=== PATIENT | male | born 1970 | race African-American/Black ===

== ENCOUNTER 2016-02-15 17:22 | Observation (INO) | payer OTHER ==
[~2016-02-15] VITALS: Ht 195.6 cm; Wt 78.9 kg
[~2016-02-15 17:22] MED LIST: AMO500 PO; HYDR-3498 PO
[2016-02-15] MEDS ORDERED: HALOPERIDOL 5 MG INJ IM ONE (18:00)
[2016-02-15] MEDS ORDERED: LORAZEPAM 2 MG INJ IM ONE (18:00)
[2016-02-15] MEDS ORDERED: DIPHENHYDRAMINE 50 MG INJ IM ONE (18:30)
[2016-02-15] MEDS ORDERED: MAGNESIUM SULFATE 2 GM, MULTIVITAMINS 10 ML, THIAMINE 100 MG, FOLIC ACID 1 MG in SOD CH... IV STA (18:34)
--- NOTE | 2016-02-15 19:13 | RADRPT ---
PROCEDURE: CT Head without. CLINICAL INDICATION: 45-year-old male with medical clearance. TECHNIQUE: The study was performed utilizing a multi-slice, multidetector CT scanner. Direct spira l 1 mm axial sections were obtained through the head without the use of intravenous contrast materia l. Coronal and sagittal reformations were obtained. The images were reviewed on a PACS workstation. RADIATION DOSE: CTDIvol: 45.1 mGyDLP: 720.2 mGy-cm COMPARISON: 11/16/2014 FINDINGS: There as been interval development of wedge-shaped low densities involving the left inferior frontal lobe (axial series image 16), as well as involving the inferior left temporal lobe (axial series im age 11). The margins are poorly circumscribed, with age indeterminate infarcts in these regions. T here are is no intracranial hemorrhage, extra-axial fluid collection, mass lesion, midline shift or hydrocephalus. The ventricles, sulci and cisterns are within normal limits. The white matter is un remarkable. The serrano-white matter differentiation is preserved. The basal cisterns are patent. Th e midline structures are intact. The orbits, calvarium and extracranial soft tissues are normal in appearance. The visualized paranasal sinuses, mastoid air cells and middle ear cavities are normally aerated. IMPRESSION: 1. Interval development of wedge-shaped hypodensities involving the left inferior frontal lobe and the left inferior temporal lobe, concerning for infarcts, age indeterminate. MRI is recommended for further evaluation. 2. No intracranial hemorrhage, extra-axial fluid collection, mass lesion or hydrocephalous. The above findings were discussed with Patient's physician JENNYFER BOWSER by telephone on 02/15/2016 7:1 2:33 PM. RPTAT: DD .Carl Ocasio MD, Date Time Electronically viewed and signed by .Carl Ocasio MD, MD on 02/15/2016 19:12 .S/
[2016-02-15 20:03] LABS: BASOPHILS % 0.2 % (0.0-2.0); EOSINOPHILS % 0.3 % (0.0-7.0); HEMATOCRIT 43.6 % (42.0-52.0); HEMOGLOBIN 14.6 g/dl (14.0-18.0); LYMPHOCYTES # 1.2 10^3/ul (0.8-2.9); LYMPHOCYTES % 13.6 % (15.0-51.0); MEAN CORPUSCULAR HGB CONC 33.5 g/dl (32.0-37.0); MEAN CORPUSCULAR VOLUME 89.4 fl (82.0-101.0); MEAN PLATELET VOLUME 7.6 fl (7.4-10.4); MONOCYTE # 0.3 10^3/ul (0.3-0.9); MONOCYTES % 3.8 % (0.0-11.0); NEUTROPHILS % 82.1 % (39.0-77.0); PLATELET COUNT 242 10^3/UL (140-440); RED BLOOD COUNT 4.88 10^6/ul (4.70-6.10); RED CELL DISTRIBUTION WIDTH 14.3 % (11.5-14.5); UNCORRECTED WBC 8.5 10^3/ul (4.8-10.8); WHITE BLOOD COUNT 8.5 10^3/ul (4.8-10.8)
[2016-02-15 20:05] LABS: CONDITION 1
[2016-02-15 20:15] LABS: ALBUMIN 4.8 g/dl (3.3-4.9); CHLORIDE 102 mmol/L (97-110)
[2016-02-15 20:16] LABS: POTASSIUM 3.9 mmol/L (3.5-5.1); SODIUM 144 mmol/L (135-144)
[2016-02-15 20:17] LABS: CREATININE 0.78 mg/dl (0.61-1.24)
[2016-02-15 20:18] LABS: ALANINE AMINOTRANSFERASE 30 IU/L (13-69); ALKALINE PHOSPHATASE 74 IU/L (42-121); ANION GAP 22 (8-16); ASPARTATE AMINO TRANSFERASE 48 IU/L (15-46); BILIRUBIN,INDIRECT 0.3 mg/dl (0-1.1); BILIRUBIN,TOTAL 0.3 mg/dl (0.2-1.3); BLOOD UREA NITROGEN 14 mg/dl (7-20); CALCIUM 9.3 mg/dl (8.4-10.2); CARBON DIOXIDE 24 mmol/L (21-31); GLUCOSE 75 mg/dl (70-220); TOTAL PROTEIN 8.8 g/dl (6.1-8.1)
[2016-02-15 20:19] LABS: ACETAMINOPHEN < 10.0 ug/ml (10.0-30.0); SALICYLATE < 1.0 mg/dl (5.0-30.0)
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
[2016-02-15] MEDS ORDERED: ACETAMINOPHEN 325 MG TAB PO PRN (22:30)
[2016-02-15] MEDS ORDERED: ONDANSETRON 4 MG INJ IV PRN ×2 (22:30→23:30)
--- NOTE | 2016-02-15 23:04 | HP ---
Date/Time of Note Date/Time of Note DATE: 02/15/16 TIME: 22:59 Assessment/Plan VTE Prophylaxis VTE Prophylaxis Intervention: SCD's Assessment/Plan Assessment/Plan 1. alcohol intoxication 2. Frontal and temporal lobe age indeterminate hypodensities concerning for CVA 3. Altered mental status 2/2 #1 4. HTN PLAN: admit / Banana bag / librium / MRI brain Fall precautions / PRN benzodiazepine for agitation / swallow eval pain control/ antiemetics/ antipyretics/ supportive care Prophylaxis: SCDS /PPI Further evaluation and treatment will be based on clinical course Full discussion with care team done. All questions Answered Please also see orders. Total time spent on this evaluation >35mins HPI/ROS Admit Date/Time Admit Date/Time 02/15/16 Hx of Present Illness PRESENTING COMPLAINT: altered mentation HISTORY OF PRESENTING COMPLAINT: 45 yo M found wandering and belligerent by EMS abd brought into the ER and found to be intoxicated and combative. he was sedated and as such I can get no history from him. Preliminary ER workup is concerning for hypodensities on CT Brain and he is being admitted for further resuscitation and MRI brain. No further history is obtainable from patient. ROS Unobtainable d/t patient's clinical status PMH/Family/Social Past Medical History * No pertinent hx Past Surgical History * R knee surgery Family History Significant Family History: other (unknown) Social History Alcohol Use: heavy Smoking Status: Current every day smoker Drug Use: none Exam/Review of Systems Vital Signs Vitals Vital Signs Date Time Temp Pulse Resp B/P Pulse Ox O2 Delivery O2 Flow Rate FiO2 02/15/16 18:33 98.4 88 20 144/88 98 Exam Constitutional: other (sleeping comfortably), No alert, No oriented Psych: other (unable to assess) Head: atraumatic, normocephalic Respiratory: clear to auscultation, diminished breath sounds Cardiovascular: regular rate and rhythm, No murmurs/extra sounds Gastrointestinal: bowel sounds, non-tender, soft Genitourinary - Male: other (deferred) Extremities: No edema Neurological: lethargic Skin: No rash or lesions Labs Result Diagram: 02/15/16 1950 02/15/16 1950 Procedures Procedures Laboratory Tests Test 02/15/16 19:50 Acetaminophen Level < 10.0ug/ml Alanine Aminotransferase (ALT/SGPT) 30IU/L Albumin 4.8g/dl Albumin/Globulin Ratio 1.20 Alkaline Phosphatase 74IU/L Anion Gap 22 Aspartate Amino Transf (AST/SGOT) 48IU/L Basophils # 0.010^3/ul Basophils % 0.2% Blood Urea Nitrogen 14mg/dl Calcium Level 9.3mg/dl Carbon Dioxide Level 24mmol/L Chloride Level 102mmol/L Creatinine 0.78mg/dl Direct Bilirubin 0.00mg/dl Eosinophils # 0.010^3/ul Eosinophils % 0.3% Ethyl Alcohol Level 224.0mg/dl Globulin 4.00g/dl Glucose Level 75mg/dl Hematocrit 43.6% Hemoglobin 14.6g/dl Indirect Bilirubin 0.3mg/dl Lymphocytes # 1.210^3/ul Lymphocytes % 13.6% Mean Corpuscular Hemoglobin 30.0pg Mean Corpuscular Hemoglobin Concent 33.5g/dl Mean Corpuscular Volume 89.4fl Mean Platelet Volume 7.6fl Monocytes # 0.310^3/ul Monocytes % 3.8% Neutrophils # 7.010^3/ul Neutrophils % 82.1% Nucleated Red Blood Cells # 0.010^3/ul Nucleated Red Blood Cells % 0.0/100WBC Platelet Count 28407^3/UL Potassium Level 3.9mmol/L Red Blood Count 4.8810^6/ul Red Cell Distribution Width 14.3% Salicylates Level < 1.0mg/dl Sodium Level 144mmol/L Total Bilirubin 0.3mg/dl Total Protein 8.8g/dl White Blood Count 8.510^3/ul ER INTERVENTIONS Medications (Trade) Dose Ordered Sig/Sharonda Route PRN Reason Start Time Stop Time Status Last Admin Dose Admin Haloperidol (Haldol) 5 mg ONCE ONCE IM 02/15/16 18:00 02/15/16 18:01 DC Lorazepam (Ativan) 2 mg ONCE ONCE IM 02/15/16 18:00 02/15/16 18:01 DC Diphenhydramine HCl 50 mg 50 mg ONCE ONCE IM 02/15/16 18:30 02/15/16 18:31 DC Magnesium Sulfate/ Multivitamins/ Thiamine HCl/ Folic Acid/Sodium Chloride (Magnesium Sulfate/Mvi Adult/ Vitamin B1/Folic Acid/NS) 1,015.2 ml @ 500 mls/ hr Q2H2M STAT IV 02/15/16 18:34 02/15/16 20:35 DC 02/15/16 22:05 500 MLS/HR Ondansetron HCl (Zofran Inj) 4 mg BRIDGE ORDER PRN IV NAUSEA AND/OR VOMITING 02/15/16 22:30 02/16/16 22:29 Acetaminophen (Tylenol Tab) 650 mg ER BRIDGE PRN PO MILD PAIN/FEVER 02/15/16 22:30 02/16/16 22:29 PROCEDURE: CT Head without. CLINICAL INDICATION: 45-year-old male with medical clearance. TECHNIQUE: The study was performed utilizing a multi-slice, multidetector CT scanner. Direct spiral 1 mm axial sections were obtained through the head without the use of intravenous contrast material. Coronal and sagittal reformations were obtained. The images were reviewed on a PACS workstation. RADIATION DOSE: CTDIvol: 45.1 mGy DLP: 720.2 mGy-cm COMPARISON: 11/16/2014 FINDINGS: There as been interval development of wedge-shaped low densities involving the left inferior frontal lobe (axial series image 16), as well as involving the inferior left temporal lobe (axial series image 12). The margins are poorly circumscribed, with age indeterminate infarcts in these regions. There are is no intracranial hemorrhage, extra-axial fluid collection, mass lesion, midline shift or hydrocephalus. The ventricles, sulci and cisterns are within normal limits. The white matter is unremarkable. The serrano-white matter differentiation is preserved. The basal cisterns are patent. The midline structures are intact. The orbits, calvarium and extracranial soft tissues are normal in appearance. The visualized paranasal sinuses, mastoid air cells and middle ear cavities are normally aerated. IMPRESSION: 1. Interval development of wedge-shaped hypodensities involving the left inferior frontal lobe and the left inferior temporal lobe, concerning for infarcts, age indeterminate. MRI is recommended for further evaluation. 2. No intracranial hemorrhage, extra-axial fluid collection, mass lesion or hydrocephalous. KAIT SEGUNDO. Feb 15, 2016 23:04
[2016-02-15] MEDS ORDERED: LORAZEPAM 2 MG INJ IV PRN (23:30)
[2016-02-15 23:55] LABS: INR 0.94; PROTIME 12.6 Sec (12.2-14.2)
[2016-02-15 23:56] LABS: PARTIAL THROMBOPLASTIN TIME 32.2 Sec (25.0-35.0)
[2016-02-16] VITALS: TEMP 98
[2016-02-16] MEDS: CHLORDIAZEPOXIDE 25 MG CAP PO SCH ×3 (02:37→15:36)
[2016-02-16] MEDS: DEXTROSE 5%-0.45% NACL 1,000 ML IV SCH ×4 (02:38→21:26)
[2016-02-16 03:15] VITALS: BP 131/79; PULSE 85; RESP 20; Ht 195.6 cm; Wt 78.9 kg
[2016-02-16] MEDS: PANTOPRAZOLE (EC) 40 MG TAB PO SCH (06:24)
[2016-02-16 08:05] LABS: BASOPHILS % 0.1 % (0.0-2.0); EOSINOPHILS # 0.1 10^3/ul (0.0-0.5); EOSINOPHILS % 0.9 % (0.0-7.0); HEMATOCRIT 42.3 % (42.0-52.0); HEMOGLOBIN 14.3 g/dl (14.0-18.0); LYMPHOCYTES # 1.3 10^3/ul (0.8-2.9); LYMPHOCYTES % 18.6 % (15.0-51.0); MEAN CORPUSCULAR HGB CONC 33.7 g/dl (32.0-37.0); MEAN PLATELET VOLUME 7.8 fl (7.4-10.4); MONOCYTE # 0.5 10^3/ul (0.3-0.9); MONOCYTES % 7.1 % (0.0-11.0); NEUTROPHIL # 5.3 10^3/ul (1.6-7.5); NEUTROPHILS % 73.3 % (39.0-77.0); PLATELET COUNT 248 10^3/UL (140-440); RED BLOOD COUNT 4.75 10^6/ul (4.70-6.10); RED CELL DISTRIBUTION WIDTH 14.1 % (11.5-14.5); UNCORRECTED WBC 7.2 10^3/ul (4.8-10.8); WHITE BLOOD COUNT 7.2 10^3/ul (4.8-10.8)
[2016-02-16 08:12] LABS: ALBUMIN 4.3 g/dl (3.3-4.9); POTASSIUM 4.4 mmol/L (3.5-5.1)
[2016-02-16 08:14] LABS: CREATININE 0.78 mg/dl (0.61-1.24)
[2016-02-16 08:15] LABS: CALCIUM 8.9 mg/dl (8.4-10.2); MAGNESIUM 2.1 mg/dl (1.7-2.5); PHOSPHORUS 2.9 mg/dl (2.5-4.9)
[2016-02-16 08:30] VITALS: BP 124/80; PULSE 94; RESP 18
[2016-02-16 08:39] LABS: CONDITION 1
[2016-02-16] MEDS: MULTIVITAMINS 10 ML, THIAMINE 100 MG, FOLIC ACID 1 MG in SOD CHLORIDE 0.9% 1,000 ML IVPB SCH (09:55)
--- NOTE | 2016-02-16 13:43 | PN ---
Date/Time of Note Date/Time of Note DATE: 02/16/16 TIME: 13:39 Assessment/Plan VTE Prophylaxis VTE Prophylaxis Intervention: ambulation Lines/Catheters IV Catheter Type (from [facility]): Peripheral IV Assessment/Plan Chief Complaint/Hosp Course A/P 1) Ac Toxic/metabolic encephalopathy; nonfocal, stable cont supportive care. 2) Alcoholism/intoxication; watch for w/d; add b1/AA/social service? 3) Stroke? doubt, check mri 4)Tobacco abuse; offer patch when appropriate. Problems: Subjective 24 Hr Interval Summary Free Text/Dictation S- awake, alert, follows commands. No significant complaints. No headache/ vision disturbances. no active tremors. Exam/Review of Systems Vital Signs Vitals Vital Signs Date Time Temp Pulse Resp B/P Pulse Ox O2 Delivery O2 Flow Rate FiO2 02/16/16 08:30 97.0 94 18 124/80 100 Room Air Intake and Output 02/15/16 02/15/16 02/16/16 15:00 23:00 07:00 Intake Total 350 ml Balance 350 ml Exam Constitutional: alert, well developed Respiratory: clear to auscultation Cardiovascular: regular rate and rhythm Gastrointestinal: non-tender (nd; no r r g), soft Extremities: other (no edema) Skin: other (non focal) Results Result Diagram: 02/16/16 0655 02/16/16 0655 Results 24 hrs Laboratory Tests Test 02/15/16 19:50 02/16/16 06:55 Acetaminophen Level < 10.0 L Activated Partial Thromboplast Time 32.2 Alanine Aminotransferase (ALT/SGPT) 30 Albumin 4.8 4.3 Albumin/Globulin Ratio 1.20 Alkaline Phosphatase 74 Anion Gap 22 H 17 H Aspartate Amino Transf (AST/SGOT) 48 H Basophils # 0.0 0.0 Basophils % 0.2 0.1 Blood Urea Nitrogen 14 12 Calcium Level 9.3 8.9 Carbon Dioxide Level 24 25 Chloride Level 102 104 Creatinine 0.78 0.78 Direct Bilirubin 0.00 Eosinophils # 0.0 0.1 Eosinophils % 0.3 0.9 Ethyl Alcohol Level 224.0 Globulin 4.00 H Glucose Level 75 73 Hematocrit 43.6 42.3 Hemoglobin 14.6 14.3 INR International Normalized Ratio 0.94 Indirect Bilirubin 0.3 Lipase 68 Lymphocytes # 1.2 1.3 Lymphocytes % 13.6 L 18.6 Mean Corpuscular Hemoglobin 30.0 30.0 Mean Corpuscular Hemoglobin Concent 33.5 33.7 Mean Corpuscular Volume 89.4 89.0 Mean Platelet Volume 7.6 7.8 Monocytes # 0.3 0.5 Monocytes % 3.8 7.1 Neutrophils # 7.0 5.3 Neutrophils % 82.1 H 73.3 Nucleated Red Blood Cells # 0.0 0.0 Nucleated Red Blood Cells % 0.0 0.0 Platelet Count 242 248 Potassium Level 3.9 4.4 Prothrombin Time 12.6 Prothrombin Time Ratio 1.0 Red Blood Count 4.88 4.75 Red Cell Distribution Width 14.3 14.1 Salicylates Level < 1.0 L Sodium Level 144 142 Total Bilirubin 0.3 Total Protein 8.8 H White Blood Count 8.5 7.2 Magnesium Level 2.1 Phosphorus Level 2.9 Medications Medications Current Medications Multivitamins 10 ml/Thiamine HCl 100 mg/Folic Acid 1 mg/Sodium Chloride 1,011.2 ml @ 125 mls/ hr DAILY@09 IVPB Last administered on 02/16/16at 09:55; Admin Dose 125 MLS/HR; Start 02/16/16 at 09:00 Dextrose/Sodium Chloride (D5-1/2ns) 1,000 ml @ 125 mls/hr Q8H IV Last administered on 02/16/16at 02:38; Admin Dose 125 MLS/HR; Start 02/15/16 at 23: 30 Lorazepam (Ativan) 2 mg Q6H PRN IV agitation; Start 02/15/16 at 23:30 Chlordiazepoxide (Librium) 50 mg Q8H PO Last administered on 02/16/16at 09:06; Admin Dose 50 MG; Start 02/15/16 at 23:30; Stop 02/16/16 at 23:29 Chlordiazepoxide (Librium) 25 mg Q6H PRN PO agitation; Start 02/16/16 at 23:30 Pantoprazole (Protonix Tab) 40 mg DAILY@06 PO Last administered on 02/16/16at 06:24; Admin Dose 40 MG; Start 02/16/16 at 06:00 Ondansetron HCl (Zofran Inj) 4 mg Q6H PRN IV NAUSEA AND/OR VOMITING; Start at 23:30 Miscellaneous Information Patients own medicat... BID@ XX ; Start at 10:00 CARYN MICHAEL MD Feb 16, 2016 13:43
--- NOTE | 2016-02-16 14:56 | CONS ---
Date/Time of Note Date/Time of Note DATE: 02/16/16 TIME: 14:47 Assessment/Plan Assessment/Plan Additional Assessment/Plan 45 yo M found wandering and belligerent by EMS, was brought into the ER and found to be intoxicated and combative. He was sedated and as such I can get no history from him. CT brain showed wedge-shaped hypodensities involving the left inferior frontal lobe and the left inferior temporal lobe, concerning for infarcts. Alcohol level was 224. PLAN 1 MRI of brain 2 Thaimine 100 mg po qd 3 watch for DT 4 will follow Consultation Date/Type/Reason Admit Date/Time 02/15/16 Date of Consultation: Feb 16, 2016 Reason for Consultation Alcohol intoxication and abnormal CT brain Hx of Present Illness 45 yo M found wandering and belligerent by EMS, was brought into the ER and found to be intoxicated and combative. He was sedated and as such I can get no history from him. CT brain showed wedge-shaped hypodensities involving the left inferior frontal lobe and the left inferior temporal lobe, concerning for infarcts. Alcohol level was 224. Constitutional: no complaints Eyes: no complaints ENT: no complaints Respiratory: no complaints Cardiovascular: no complaints Genitourinary: no complaints Musculoskeletal: no complaints Skin: no complaints Neurologic: no complaints Endocrine: no complaints Lymphatic: no complaints Psychological: nl mood/affect, no complaints, other (unable to assess) Immunologic: no complaints Past Medical History Medical History: no pertinent history Past Surgical History Past Surgical Hx: no surgical history Family History Significant Family History: no pertinent family hx Social History Alcohol Use: heavy Smoking Status: Current some day smoker Drug Use: none Exam/Review of Systems Vital Signs Vitals Vital Signs Date Time Temp Pulse Resp B/P Pulse Ox O2 Delivery O2 Flow Rate FiO2 02/16/16 08:30 97.0 94 18 124/80 100 Room Air Intake and Output 02/15/16 02/15/16 02/16/16 15:00 23:00 07:00 Intake Total 350 ml Balance 350 ml Exam Constitutional: alert, well developed Psych: nl mood/affect, no complaints Head: atraumatic, normocephalic Eyes: EOMI, nl conjunctiva, nl lids ENMT: nl external ears & nose, nl lips & teeth, nl nasal mucosa & septum Neck: non-tender, supple Respiratory: clear to auscultation, normal air movement Cardiovascular: nl pulses, regular rate and rhythm Gastrointestinal: nl liver, spleen, non-tender, soft Musculoskeletal: nl extremities to inspection, nl gait and stance Extremities: normal pulses Neurological: PIGMENT WEIGHER II-XII intact, nl speech, nl strength Skin: nl turgor Lymph: nl lymph nodes Results Result Diagram: 02/16/16 0655 02/16/16 0655 Results 24 hrs Laboratory Tests Test 02/15/16 19:50 02/16/16 06:55 Acetaminophen Level < 10.0 L Activated Partial Thromboplast Time 32.2 Alanine Aminotransferase (ALT/SGPT) 30 Albumin 4.8 4.3 Albumin/Globulin Ratio 1.20 Alkaline Phosphatase 74 Anion Gap 22 H 17 H Aspartate Amino Transf (AST/SGOT) 48 H Basophils # 0.0 0.0 Basophils % 0.2 0.1 Blood Urea Nitrogen 14 12 Calcium Level 9.3 8.9 Carbon Dioxide Level 24 25 Chloride Level 102 104 Creatinine 0.78 0.78 Direct Bilirubin 0.00 Eosinophils # 0.0 0.1 Eosinophils % 0.3 0.9 Ethyl Alcohol Level 224.0 Globulin 4.00 H Glucose Level 75 73 Hematocrit 43.6 42.3 Hemoglobin 14.6 14.3 INR International Normalized Ratio 0.94 Indirect Bilirubin 0.3 Lipase 68 Lymphocytes # 1.2 1.3 Lymphocytes % 13.6 L 18.6 Mean Corpuscular Hemoglobin 30.0 30.0 Mean Corpuscular Hemoglobin Concent 33.5 33.7 Mean Corpuscular Volume 89.4 89.0 Mean Platelet Volume 7.6 7.8 Monocytes # 0.3 0.5 Monocytes % 3.8 7.1 Neutrophils # 7.0 5.3 Neutrophils % 82.1 H 73.3 Nucleated Red Blood Cells # 0.0 0.0 Nucleated Red Blood Cells % 0.0 0.0 Platelet Count 242 248 Potassium Level 3.9 4.4 Prothrombin Time 12.6 Prothrombin Time Ratio 1.0 Red Blood Count 4.88 4.75 Red Cell Distribution Width 14.3 14.1 Salicylates Level < 1.0 L Sodium Level 144 142 Total Bilirubin 0.3 Total Protein 8.8 H White Blood Count 8.5 7.2 Magnesium Level 2.1 Phosphorus Level 2.9 Medications Medications Current Medications Multivitamins 10 ml/Thiamine HCl 100 mg/Folic Acid 1 mg/Sodium Chloride 1,011.2 ml @ 125 mls/ hr DAILY@09 IVPB Last administered on 02/16/16at 09:55; Admin Dose 125 MLS/HR; Start 02/16/16 at 09:00 Dextrose/Sodium Chloride (D5-1/2ns) 1,000 ml @ 125 mls/hr Q8H IV Last administered on 02/16/16at 02:38; Admin Dose 125 MLS/HR; Start 02/15/16 at 23: 30 Lorazepam (Ativan) 2 mg Q6H PRN IV agitation; Start 02/15/16 at 23:30 Chlordiazepoxide (Librium) 50 mg Q8H PO Last administered on 02/16/16at 09:06; Admin Dose 50 MG; Start 02/15/16 at 23:30; Stop 02/16/16 at 23:29 Chlordiazepoxide (Librium) 25 mg Q6H PRN PO agitation; Start 02/16/16 at 23:30 Pantoprazole (Protonix Tab) 40 mg DAILY@06 PO Last administered on 02/16/16at 06:24; Admin Dose 40 MG; Start 02/16/16 at 06:00 Ondansetron HCl (Zofran Inj) 4 mg Q6H PRN IV NAUSEA AND/OR VOMITING; Start at 23:30 Miscellaneous Information Patients own medicat... BID@10,16 XX ; Start at 10:00 Procedures Procedures 02/15/16 CT brain IMPRESSION: 1. Interval development of wedge-shaped hypodensities involving the left inferior frontal lobe and the left inferior temporal lobe, concerning for infarcts, age indeterminate. MRI is recommended for further evaluation. 2. No intracranial hemorrhage, extra-axial fluid collection, mass lesion or hydrocephalous. The above findings were discussed with Patient's physician JENNYFER BOWSER by telephone on 02/15/2016 7:12:33 PM. RPTAT: DD .Carl Ocasio MD, Date Time Electronically viewed and signed by .Carl Ocasio MD, on 02/15/2016 19: 12 NO GAGNON MD Feb 16, 2016 14:56
--- NOTE | 2016-02-16 16:02 | RADRPT ---
PROCEDURE: MRI Brain without contrast. CLINICAL INDICATION: Abnormal head CT was hypo density in the left frontal and temporal lobes TECHNIQUE: An MRI of the brain was performed on a high resolution hi-definition 3.0 Geri MRI scan ner utilizing the following sequences: Sagittal axial T1 weighted, axial T2 weighted, coronal GRE, axial diffusion weighted with ADC mapping, coronal GRE, and axial FLAIR. COMPARISON: Brain CT on FINDINGS: The scalp and calvarium are normal. The visualized bilateral orbits are normal. The bilateral paran ana luisa sinuses are remarkable for mild mucosal thickening in the bilateral maxillary, ethmoid and fron han sinuses. The bilateral mastoid air cells demonstrate incomplete mastoid air cell pneumatization . The bilateral middle ear cavities are clear. No extra-axial fluid collections are present. The ventricles and sulci are normal in size and config uration. No evidence of intracranial hemorrhage, mass effect or midline shift is present. FLAIR and T2 hyperintensity is noted in the left temporal lobe and the left inferior frontal lobes. These may represent sequela of prior contusion, infarcts, however acute encephalomyelitis is a consideration. Consider brain MRI with contrast to further evaluate. In addition punctate foci of hyperintensity i s present in the bilateral centrum semiovale and periventricular white matter which are nonspecific microvascular changes. No diffusion weighted abnormalities are seen to suggest the presence of acute ischemia or recent infarct. No hypointense signal abnormalities are seen on the GRE images to sugg est the presence of blood degradation products. Normal flow voids are visible in the proximal in tracranial arteries and dural sinuses, indicating patency. IMPRESSION: 1. No evidence for acute intracranial infarcts, masses, or hemorrhage. 2. Wedge-shaped hyperintensity in the left inferior frontal and temporal lobes may represent sequel a of prior infarct, contusion, or cerebritis. Consider follow-up with contrast brain MRI. 3. Mild nonspecific hyperintense white matter foci compatible with migrainous vasculopathy, vasculi tis or early microvascular ischemic disease. This report was called to at patient's nurse Lady Pool following the completion of the examination by the undersigned. RPTAT: HDC .Isabella Griffin MD, MD Date Time Electronically viewed and signed by .Isabella Griffin MD, on 02/16/2016 16:02 .C/
[2016-02-16 20:00] VITALS: BP 129/80; PULSE 82; RESP 20
[2016-02-16] MEDS ORDERED: CHLORDIAZEPOXIDE 25 MG CAP PO PRN (23:30)
[2016-02-17] MEDS: DEXTROSE 5%-0.45% NACL 1,000 ML IV SCH ×2 (04:54→15:30)
[2016-02-17] MEDS: PANTOPRAZOLE (EC) 40 MG TAB PO SCH (05:20)
[2016-02-17 06:16] LABS: ALBUMIN 3.9 g/dl (3.3-4.9)
[2016-02-17 06:17] LABS: POTASSIUM 4.3 mmol/L (3.5-5.1)
[2016-02-17 06:19] LABS: ALBUMIN/GLOBULIN RATIO 1.21; CREATININE 0.88 mg/dl (0.61-1.24); TOTAL PROTEIN 7.1 g/dl (6.1-8.1)
[2016-02-17 06:20] LABS: CALCIUM 8.8 mg/dl (8.4-10.2); MAGNESIUM 1.9 mg/dl (1.7-2.5); PHOSPHORUS 3.4 mg/dl (2.5-4.9)
[2016-02-17 06:50] LABS: THYROID STIMULATING HORMONE 0.426 MIU/L (0.465-4.680)
[2016-02-17 08:26] VITALS: BP 107/79; RESP 20
[2016-02-17] MEDS ORDERED: THIAMINE 100 MG TAB PO SCH (09:00)
[2016-02-17 10:04] LABS: BASOPHILS % 0.3 % (0.0-2.0); EOSINOPHILS # 0.1 10^3/ul (0.0-0.5); EOSINOPHILS % 2.2 % (0.0-7.0); HEMATOCRIT 41.7 % (42.0-52.0); HEMOGLOBIN 14.1 g/dl (14.0-18.0); LYMPHOCYTES # 1.5 10^3/ul (0.8-2.9); LYMPHOCYTES % 26.1 % (15.0-51.0); MEAN CORPUSCULAR HGB CONC 33.8 g/dl (32.0-37.0); MEAN CORPUSCULAR VOLUME 88.7 fl (82.0-101.0); MEAN PLATELET VOLUME 8.2 fl (7.4-10.4); MONOCYTE # 0.6 10^3/ul (0.3-0.9); NEUTROPHIL # 3.6 10^3/ul (1.6-7.5); NEUTROPHILS % 61.4 % (39.0-77.0); PLATELET COUNT 236 10^3/UL (140-440); RED CELL DISTRIBUTION WIDTH 14.5 % (11.5-14.5); UNCORRECTED WBC 5.9 10^3/ul (4.8-10.8); WHITE BLOOD COUNT 5.9 10^3/ul (4.8-10.8)
[2016-02-17 10:07] LABS: CONDITION 1; LH ANALYZER COMMENTS 1
[2016-02-17 11:35] LABS: ALBUMIN 3.9 g/dl (3.3-4.9); POTASSIUM 4.4 mmol/L (3.5-5.1)
[2016-02-17 11:38] LABS: CREATININE 0.81 mg/dl (0.61-1.24); PHOSPHORUS 3.4 mg/dl (2.5-4.9)
[2016-02-17] MEDS: MULTIVITAMINS 10 ML, THIAMINE 100 MG, FOLIC ACID 1 MG in SOD CHLORIDE 0.9% 1,000 ML IVPB SCH (13:07)
--- NOTE | 2016-02-17 14:00 | CONS ---
Date/Time of Note Date/Time of Note DATE: 02/17/16 TIME: 13:54 Assessment/Plan Assessment/Plan Chief Complaint/Hosp Course ETOH intoxication and abnormal CT brain.. Problems: Additional Assessment/Plan 45 yo M found wandering and belligerent by EMS, was brought into the ER and found to be intoxicated and combative. He was sedated and as such I can get no history from him. CT brain showed wedge-shaped hypodensities involving the left inferior frontal lobe and the left inferior temporal lobe, concerning for infarcts. Alcohol level was 224. MRI of brain showed no evidence for acute intracranial infarcts, masses, or hemorrhage, wedge-shaped hyperintensity in the left inferior frontal and temporal lobes may represent sequela of prior infarct, contusion, or cerebritis, mild nonspecific hyperintense white matter foci compatible with migrainous vasculopathy, vasculitis or early microvascular ischemic disease. PLAN: 1. MRI of brain with contrast 2. Continue Thiamine 3. watch for DT 4 will follow Consultation Date/Type/Reason Admit Date/Time Feb 15, 2016 at 22:29 Initial Consult Date 02/16/16 Reason for Consultation ETOH intoxication and abnormal CT brain 24 HR Interval Summary Free Text/Dictation Improved in mental status. MRI of brain showed no evidence for acute intracranial infarcts, masses, or hemorrhage, wedge-shaped hyperintensity in the left inferior frontal and temporal lobes may represent sequela of prior infarct, contusion, or cerebritis, mild nonspecific hyperintense white matter foci compatible with migrainous vasculopathy, vasculitis or early microvascular ischemic disease. Constitutional: improved Exam/Review of Systems Vital Signs Vitals Vital Signs Date Time Temp Pulse Resp B/P Pulse Ox O2 Delivery O2 Flow Rate FiO2 02/17/16 08:26 97.6 74 20 107/79 100 02/16/16 20:00 Room Air Intake and Output 02/16/16 02/16/16 02/17/16 15:00 23:00 07:00 Intake Total 500 ml 1371.2 ml 1240 ml Balance 500 ml 1371.2 ml 1240 ml Exam Constitutional: alert, oriented, well developed Psych: nl mood/affect, no complaints Head: atraumatic, normocephalic Eyes: EOMI, nl conjunctiva, nl lids, nl sclera ENMT: mucosa pink and moist, nl external ears & nose, nl lips & teeth, nl nasal mucosa & septum Neck: non-tender, supple Respiratory: clear to auscultation, normal air movement Cardiovascular: nl pulses, regular rate and rhythm Gastrointestinal: nl liver, spleen, non-tender, soft Musculoskeletal: nl extremities to inspection Extremities: normal pulses Neurological: RADIOLOGIC TECHNOLOGY TEACHER II-XII intact, nl mental status, nl speech, nl strength Skin: nl turgor, rash or lesions Lymph: nl lymph nodes Results Result Diagram: 02/17/16 0505 02/17/16 1100 Results 24 hrs Laboratory Tests Test 02/17/16 05:05 02/17/16 11:00 Alanine Aminotransferase (ALT/SGPT) 33 Albumin 3.9 3.9 Albumin/Globulin Ratio 1.21 Alkaline Phosphatase 53 Anion Gap 15 14 Aspartate Amino Transf (AST/SGOT) 42 Basophils # 0.0 Basophils % 0.3 Blood Morphology Comment Blood Urea Nitrogen 15 13 Calcium Level 8.8 9.0 Carbon Dioxide Level 28 27 Chloride Level 103 103 Creatinine 0.88 0.81 Direct Bilirubin 0.00 Eosinophils # 0.1 Eosinophils % 2.2 Globulin 3.20 Glucose Level 91 92 Hematocrit 41.7 L Hemoglobin 14.1 Hemoglobin A1c 5.1 Indirect Bilirubin 1.0 Lymphocytes # 1.5 Lymphocytes % 26.1 Magnesium Level 1.9 Mean Corpuscular Hemoglobin 30.0 Mean Corpuscular Hemoglobin Concent 33.8 Mean Corpuscular Volume 88.7 Mean Platelet Volume 8.2 Monocytes # 0.6 Monocytes % 10.0 Neutrophils # 3.6 Neutrophils % 61.4 Nucleated Red Blood Cells # 0.0 Nucleated Red Blood Cells % 0.0 Phosphorus Level 3.4 3.4 Platelet Count 236 Potassium Level 4.3 4.4 Red Blood Count 4.70 Red Cell Distribution Width 14.5 Sodium Level 142 140 Thyroid Stimulating Hormone (TSH) 0.426 L Total Bilirubin 1.0 Total Protein 7.1 # White Blood Count 5.9 Medications Medications Current Medications Multivitamins 10 ml/Thiamine HCl 100 mg/Folic Acid 1 mg/Sodium Chloride 1,011.2 ml @ 125 mls/ hr DAILY@09 IVPB Last administered on 02/17/16 13:07; Admin Dose 125 MLS/HR; Start 02/16/16 at 09:00 Dextrose/Sodium Chloride (D5-1/2ns) 1,000 ml @ 125 mls/hr Q8H IV Last administered on 02/17/16 04:54; Admin Dose 125 MLS/HR; Start 02/15/16 at 23:30 Lorazepam (Ativan) 2 mg Q6H PRN IV agitation; Start 02/15/16 at 23:30 Chlordiazepoxide (Librium) 25 mg Q6H PRN PO agitation; Start 02/16/16 at 23:30 Pantoprazole (Protonix Tab) 40 mg DAILY@06 PO Last administered on 02/17/16 05: 20; Admin Dose 40 MG; Start 02/16/16 at 06:00 Ondansetron HCl (Zofran Inj) 4 mg Q6H PRN IV NAUSEA AND/OR VOMITING; Start at 23:30 Miscellaneous Information Patients own medicat... BID@10, XX ; Start at 10:00 Procedures Procedures 02/16/16 MRI of brain without contrast IMPRESSION: 1. No evidence for acute intracranial infarcts, masses, or hemorrhage. 2. Wedge-shaped hyperintensity in the left inferior frontal and temporal lobes may represent sequela of prior infarct, contusion, or cerebritis. Consider follow-up with contrast brain MRI. 3. Mild nonspecific hyperintense white matter foci compatible with migrainous vasculopathy, vasculitis or early microvascular ischemic disease. RPTAT: HDC .Isabella Griffin MD, MD Date Time Electronically viewed and signed by .Isabella Griffin MD, MD on 02/16/2016 16: 02 NO GAGNON MD Feb 17, 2016 14:00
--- NOTE | 2016-02-17 14:31 | PN ---
Date/Time of Note Date/Time of Note DATE: 02/17/16 TIME: 14:29 Assessment/Plan VTE Prophylaxis VTE Prophylaxis Intervention: ambulation Lines/Catheters IV Catheter Type (from [facility]): Peripheral IV Urinary Cath still in place: No Assessment/Plan Chief Complaint/Hosp Course A/P 1) Ac Toxic/metabolic encephalopathy; nonfocal, stable cont supportive care. 2) Alcoholism/intoxication; watch for w/d; add b1/AA/social service? 3) Stroke? doubt, check mri...with contrast; DC home if ok. 4)Tobacco abuse; offer patch when appropriate. 5) Subclinical hyperthyroidism Problems: Subjective 24 Hr Interval Summary Free Text/Dictation S- no events; no distress. no loss of vision/ or focal deficits. Exam/Review of Systems Vital Signs Vitals Vital Signs Date Time Temp Pulse Resp B/P Pulse Ox O2 Delivery O2 Flow Rate FiO2 02/17/16 08:26 97.6 74 20 107/79 100 02/16/16 20:00 Room Air Intake and Output 02/16/16 02/16/16 02/17/16 15:00 23:00 07:00 Intake Total 500 ml 1371.2 ml 1240 ml Balance 500 ml 1371.2 ml 1240 ml Exam Constitutional: alert, oriented, well developed Respiratory: diminished breath sounds Cardiovascular: regular rate and rhythm Gastrointestinal: non-tender, soft Extremities: other (no edema) Neurological: DIRECTOR CORPORATE COMMUNICATIONS II-XII intact, DTR's symmetric, reflexes (symmetrical) Results Result Diagram: 02/17/16 0505 02/17/16 1100 Results 24 hrs Laboratory Tests Test 02/17/16 05:05 02/17/16 11:00 Alanine Aminotransferase (ALT/SGPT) 33 Albumin 3.9 3.9 Albumin/Globulin Ratio 1.21 Alkaline Phosphatase 53 Anion Gap 15 14 Aspartate Amino Transf (AST/SGOT) 42 Basophils # 0.0 Basophils % 0.3 Blood Morphology Comment Blood Urea Nitrogen 15 13 Calcium Level 8.8 9.0 Carbon Dioxide Level 28 27 Chloride Level 103 103 Creatinine 0.88 0.81 Direct Bilirubin 0.00 Eosinophils # 0.1 Eosinophils % 2.2 Globulin 3.20 Glucose Level 91 92 Hematocrit 41.7 L Hemoglobin 14.1 Hemoglobin A1c 5.1 Indirect Bilirubin 1.0 Lymphocytes # 1.5 Lymphocytes % 26.1 Magnesium Level 1.9 Mean Corpuscular Hemoglobin 30.0 Mean Corpuscular Hemoglobin Concent 33.8 Mean Corpuscular Volume 88.7 Mean Platelet Volume 8.2 Monocytes # 0.6 Monocytes % 10.0 Neutrophils # 3.6 Neutrophils % 61.4 Nucleated Red Blood Cells # 0.0 Nucleated Red Blood Cells % 0.0 Phosphorus Level 3.4 3.4 Platelet Count 236 Potassium Level 4.3 4.4 Red Blood Count 4.70 Red Cell Distribution Width 14.5 Sodium Level 142 140 Thyroid Stimulating Hormone (TSH) 0.426 L Total Bilirubin 1.0 Total Protein 7.1 # White Blood Count 5.9 Medications Medications Current Medications Multivitamins 10 ml/Thiamine HCl 100 mg/Folic Acid 1 mg/Sodium Chloride 1,011.2 ml @ 125 mls/ hr DAILY@09 IVPB Last administered on 02/17/16 13:07; Admin Dose 125 MLS/HR; Start 02/16/16 at 09:00 Dextrose/Sodium Chloride (D5-1/2ns) 1,000 ml @ 125 mls/hr Q8H IV Last administered on 02/17/16 04:54; Admin Dose 125 MLS/HR; Start 02/15/16 at 23:30 Lorazepam (Ativan) 2 mg Q6H PRN IV agitation; Start 02/15/16 at 23:30 Chlordiazepoxide (Librium) 25 mg Q6H PRN PO agitation; Start 02/16/16 at 23:30 Pantoprazole (Protonix Tab) 40 mg DAILY@06 PO Last administered on 02/17/16 05: 20; Admin Dose 40 MG; Start 02/16/16 at 06:00 Ondansetron HCl (Zofran Inj) 4 mg Q6H PRN IV NAUSEA AND/OR VOMITING; Start at 23:30 Miscellaneous Information Patients own medicat... BID@ XX ; Start at 10:00 CARYN MICHAEL MD Feb 17, 2016 14:30
[2016-02-17] MEDS ORDERED: THIA100T10 PO (14:32)
--- NOTE | 2016-02-17 14:32 | PDOCDIS ---
Discharge Instructions DIAGNOSIS Discharge Diagnosis: delirium CONDITION Patient Condition: Good HOME CARE INSTRUCTIONS: Special Diet: REGULAR ACTIVITY: Activity Restrictions: Avoid heavy lifting Do not Drive FOLLOW UP/APPOINTMENTS Appointments PCP 1 wk CARYN MICHAEL MD Feb 17, 2016 14:32
--- NOTE | 2016-02-17 18:11 | DS ---
DATE OF ADMISSION: 02/15/2016 DATE OF DISCHARGE: 02/17/2016 PRIMARY CARE PHYSICIAN: Unknown. METAL DOOR ASSEMBLER: Dr. Gagnon. DIAGNOSES ON ADMISSION: Acute toxic metabolic encephalopathy DIAGNOSES ON DISCHARGE: 1. Acute toxic metabolic encephalopathy. 2. Chronic alcoholism. 3. Subclinical hyperthyroidism. 3. Probable depression. HOSPITAL COURSE: This is a 45-year-old gentleman who was found at home combative, altered, encephal opathic. His alcohol level was found to be high. His TSH is low, but there are no symptoms of hype rparathyroidism. This appears subclinical. The patient was evaluated and manage for alcoholism and secondary problems. No evidence of stroke or seizure or pneumonia or significant etiologies for ot her problems associated with encephalopathy. The patient will be stabilized and discharged home. In terms of alcoholism, I will ask for assistance from social service and presented with an MARVEL parra ns. I added thiamine. In terms of tobacco abuse, at some point counseling and a patch can be offered at the appropriate ti me. In terms of imaging, his MRI was read for a possible wedge-shaped infarct or cerebritis or injury. Will obtain an MRI with contrast. This is likely an over-read; therefore, we will follow up with a contrast MRI and go from there. If this is normal, patient can probably go home. The CAT scan of b rain did not show any acute process. There was concern for infarct, left inferior frontal lobe, lef t inferior temporal lobe, and the MRI without contrast was read as wedge- shaped hyperintensities, l eft anterior frontal and temporal lobes, which may represent sequela of prior infarct, contusion, or cerebritis. The MRI with contrast is pending. LABORATORY DATA: Alcohol level was 254. Tylenol, salicylates was okay. Urine tox screen not sent. INR 0.9. CMP essentially unremarkable. TSH was 0.426, free T4, T3 pending. A1c of 5, lipase of 68. CBC unremarkable. DISCHARGE PLAN: Home. Follow up with primary in 1 week. DIET: Regular. ACTIVITY: As tolerated. No driving. CODE STATUS: FULL. CONDITION: Good. ALLERGIES: NO KNOWN DRUG ALLERGIES. BARRIERS TO DISCHARGE: None. PENDING TESTS: Free T4, T3 at [phone]. FUNCTIONAL STATUS: Awake, alert, and agreed to plan of care and options. REASON FOR ADMISSION: Encephalopathy. NEW MEDICATIONS: Thiamine 100 daily. Dictated By: CARYN BRUNSON/QUINN Conf#: [id number] DID#: [id number] CC: NO GAGNON MD;*EndCC*
--- NOTE | 2016-02-17 19:18 | RADRPT ---
PROCEDURE: MRI Brain with and without contrast. CLINICAL INDICATION: Abnormal brain CT, abnormal brain MRI, altered mental status TECHNIQUE: MRI of the brain performed with without intravenous contrast. CONTRAST: 10 mL of Magnevist administered intravenously without adverse event. COMPARISON: MRI of the brain 02/16/2016 FINDINGS: Additional precontrast axial T1-weighted images as well as postcontrast T1-weighted images are obtai leisa as well as stereotactic postcontrast volumetric acquisition. There is no evidence of abnormal en hancement seen within the areas of FLAIR signal hyperintensity involving the inferior left frontal l obe and left temporal lobe. Findings likely represent the sequelae of prior remote injury. No other evidence of abnormal enhanc ement is seen. Hypointense cortical foci involving the right frontal lobe and left temporal lobe may represent smal l areas of siderosis/prior hemorrhagic contusion. Similar foci of hypointensity are observed within the subcutaneous tissues of the scalp in the front al and parietal regions again without corresponding abnormality on the patient's prior head CT. IMPRESSION: No evidence of abnormal enhancement. Areas of signal abnormality observed on the prior examination involving the inferior left frontal lo be and left temporal lobe likely represent sequelae of prior parenchymal injury. Small cortical appearing hypointense foci involving the right frontal lobe and left temporal lobe ma y represent small areas of prior petechial hemorrhage from prior contusion. RPTAT: AADD .Fitz Naqvi MD, MD Date Time Electronically viewed and signed by .Fitz Naqvi MD, MD on 02/17/2016 16:39 .B/
[2016-02-17 19:34] VITALS: BP 126/77; RESP 20
== END 2016-02-17 21:50 | disposition home or self-care (01) ==
LOC: FTE 17:22 → MS2 22:29
PROVIDERS: ADMIT Family Medicine; ATTEND Family Medicine
DX: G92 Toxic encephalopathy (principal); F10.20 Alcohol dependence, uncomplicated; E05.80 Other thyrotoxicosis without thyrotoxic crisis or storm
CPT/HCPCS: 70450; 70551; 70553; 80053; 80069; 80320; 80329; 83036; 83690; 83735; 84100; 84439; 84443; 84480; 85025; 85610; 85730; 92610; J1630; J2060; J3411; J3475; J7030; Z7500; Z7610; 99217; G0378; G0478